=== PATIENT | female | born 1950 | race Caucasian/White ===

== ENCOUNTER 2023-09-20 17:32 | Outpatient (CLI) | payer MEDICARE, BC, SELFPAY | END 2023-09-20 17:33 | disposition home or self-care (01) | PROVIDERS: PCP Nurse Practitioner Family; Visit Provider Nurse Practitioner Family | DX: Z00.00 Encounter for general adult medical examination without abnormal findings (principal); E78.2 Mixed hyperlipidemia; I10 Essential (primary) hypertension; Z86.39 Personal history of other endocrine, nutritional and metabolic disease; E07.9 Disorder of thyroid, unspecified; Z13.6 Encounter for screening for cardiovascular disorders | CPT/HCPCS: 80061; 82947; 84443 ==

== ENCOUNTER 2024-01-17 11:53 | Outpatient (CLI) | payer MEDICARE, BC, SELFPAY | END 2024-01-17 11:54 | disposition home or self-care (01) | PROVIDERS: PCP Nurse Practitioner Family; Visit Provider Physician Assistant Medical | DX: R30.0 Dysuria (principal); R60.0 Localized edema; K62.5 Hemorrhage of anus and rectum; I10 Essential (primary) hypertension; E78.2 Mixed hyperlipidemia; F32.A Depression, unspecified | CPT/HCPCS: 82607; 83540; 83550; 83880; 87086; 87186 ==

== ENCOUNTER 2024-02-05 10:55 | Outpatient (CLI) | payer MEDICARE, BC, SELFPAY | END 2024-02-05 10:56 | disposition home or self-care (01) | LOC: NFLDREF 02-07 12:53 | PROVIDERS: PCP Nurse Practitioner Family; Referring Provider Nurse Practitioner Family; Visit Provider Physician Assistant Medical | DX: N39.0 Urinary tract infection, site not specified (principal); K62.5 Hemorrhage of anus and rectum; D64.9 Anemia, unspecified | CPT/HCPCS: 87086 ==

== ENCOUNTER 2025-01-02 09:20 | Outpatient (CLI) | payer MEDICARE, BC, SELFPAY | END 2025-01-02 09:21 | disposition home or self-care (01) | LOC: NFLDREF 01-05 12:27 | PROVIDERS: PCP Nurse Practitioner Family; Referring Provider Nurse Practitioner Family; Visit Provider Nurse Practitioner Family | DX: D64.9 Anemia, unspecified (principal); E78.2 Mixed hyperlipidemia; I10 Essential (primary) hypertension; E03.9 Hypothyroidism, unspecified | CPT/HCPCS: 80053; 80061; 84439; 84443 ==